=== PATIENT | male | born 1975 ===

== ENCOUNTER 2020-05-01 10:17 | Emergency (ER) | payer OTHER ==
[~2020-05-01] VITALS: Ht 175.3 cm; Wt 95.3 kg
[2020-05-01] MEDS ORDERED: CARDURA1 MG PO (10:46)
[2020-05-01] MEDS ORDERED: CARAFATE1 GM (10:46)
[2020-05-01] MEDS ORDERED: GABAPENTIN800 MG (10:46)
[2020-05-01] MEDS ORDERED: FORTAMET500 MG PO (10:47)
[2020-05-01] MEDS ORDERED: LISINOPRIL2.5 MG PO (10:47)
[2020-05-01] MEDS ORDERED: PRILOSEC OTC20 MG (10:48)
[2020-05-01] MEDS ORDERED: PEPCID AC20 MG PO (10:48)
[2020-05-01] MEDS ORDERED: BACLOFEN20 MG PO (10:48)
[2020-05-01] MEDS ORDERED: LIPITOR20 MG PO (10:49)
== END 2020-05-01 17:51 | disposition home or self-care (01) ==
LOC: ER 10:17
DX: K40.31 Unilateral inguinal hernia, with obstruction, without gangrene, recurrent (principal); Z20.822 Contact with and (suspected) exposure to COVID-19